=== PATIENT | female | born 1965 | race Caucasian/White ===

== ENCOUNTER 2017-11-27 05:36 | Day surgery (SDC) | payer OTHER ==
[~2017-11-27] VITALS: Ht 167.6 cm; Wt 74.9 kg
[~2017-11-27 05:36] MED LIST: ADDERALL XR 3030 MG PO; DAILY VALUE1 EACH PO; MIRENA1 EACH IY; PRINIVIL10 MG PO; VITAMIN C PO; [UNRECOGNIZED DRUG - OTHER] PO; [UNRECOGNIZED DRUG - REMARK] PO
[2017-11-27 06:19] VITALS: BP 131/74
[2017-11-27 09:17] VITALS: BP 117/69
[2017-11-27 10:07] VITALS: BP 114/64
== END 2017-11-27 10:15 | disposition home or self-care (01) ==
LOC: SDC 05:36
PROC: 0SBD4ZZ Excision of Left Knee Joint, Percutaneous Endoscopic Approach (ICD-10-PCS; principal; 2017-11-27)
DX: S83.242A Other tear of medial meniscus, current injury, left knee, initial encounter (principal); M94.262 Chondromalacia, left knee; M17.12 Unilateral primary osteoarthritis, left knee; X50.1XXA Overexertion from prolonged static or awkward postures, initial encounter; Y93.H2 Activity, gardening and landscaping; Y92.007 Garden or yard of unspecified non-institutional (private) residence as the place of occurrence of the external cause; I10 Essential (primary) hypertension
CPT/HCPCS: 93005; J1100; J1885; J2405; J2795; J3010; S0020